=== PATIENT | male | born 1955 | race Caucasian/White ===

== ENCOUNTER 2021-06-22 11:13 | Inpatient (IN) | payer MEDICARE, BC ==
[~2021-06-22] VITALS: Ht 162.6 cm; Wt 83.8 kg
[~2021-06-22 11:13] MED LIST: ASPIRIN 81M81 MG/TA2 PO; CLARITIN 1010 MG/TAB PO; FEOSOL45 MG PO; MOTRIN 400400 MG/TAB PO; PROTONIX 40MG T40 MG PO
[2021-07-09] VITALS (11 sets, daily range): BP systolic 128–146; BP diastolic 46–93; PULSE 76–102; TEMP 98.1–99.8
[2021-07-09] MEDS ORDERED: PROTONIX20 MG PO (05:41)
[2021-07-09] MEDS ORDERED: FERROUS SU325 MG/TAB PO (05:42)
[2021-07-09] MEDS ORDERED: LIPITOR 40MG TA40 MG PO (05:42)
[2021-07-09] MEDS ORDERED: HCTZ12.5TAB PO (05:43)
--- NOTE | 2021-07-09 05:45 | NUR ---
PATIENT AND AMBULATED INTO [facility] WITH STEADY GAIT. PATIENT IS ALERT AND ORIENTED X 4. CONSENT EXPLAINED AND PATIENT SIGNED. ASSESSMENT COMPLETED. SEE CHART. HISTORY COMPLETED.
[2021-07-09 06:25] LABS: HEMATOCRIT 42.3 % (42.0-52.0); HEMOGLOBIN 14.3 g/dl (13.5-18.0); MEAN CELL VOLUME 93 fl (80.0-100.0); MEAN CORPUSCULAR HEMOGLOBIN 31 pg (27-31); MEAN CORPUSCULAR HGB CONC 34 g/dl (33.0-37.0); MEAN PLATELET VOLUME 11.1 fl (7.4-10.4); PLATELET COUNT 230 K/mm3 (130-400); RED BLOOD COUNT 4.57 M/mm3 (4.20-5.60); REDCELL DISTRIBUTION WIDTH-CV 12.5 % (11.5-14.5)
[2021-07-09 06:46] LABS: ALBUMIN 4.1 gm/dL (3.4-4.8); BILIRUBIN,TOTAL 0.6 mg/dL (0.2-1.2); CALCIUM 9.1 mg/dL (8.4-10.2); CREATININE, serum 0.99 mg/dL (0.72-1.25); POTASSIUM 3.8 mmol/L (3.5-4.5)
--- NOTE | 2021-07-09 11:35 | NUR ---
returned to room from PACU per bed, awake and alert, IV infusing and placed on pump at 75ml/hr, O2 on at 3L/NC, newton cath patent draining clear yellow urine in tubing, abdomen with 5 robotic puncture sites that have scant amt drainage to one mid abdomen, also has drain site covered with gauze, drain compressed, full assessment completed, see interventions for further info, denies needs at this time
--- NOTE | 2021-07-09 11:45 | NUR ---
provided water and takes sips and tolerates well, informed him he is not to use a straw or have carbonated beverages and verbalizes understanding,
--- NOTE | 2021-07-09 12:00 | NUR ---
urine is now a pink color in tubing, he rests between checks, at bedside
--- NOTE | 2021-07-09 12:21 | NUR ---
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
--- NOTE | 2021-07-09 12:45 | NUR ---
dozing between checks, c/o mild abdominal pain, medicated with scheduled tylenol, urine remains pink to fruit punch color
--- NOTE | 2021-07-09 13:27 | NUR ---
Dr Blanchard notified that urine is fruit punch in color and has had out approx 100ml u rine, order received
--- NOTE | 2021-07-09 13:35 | NUR ---
1000ml bolus NS started
[2021-07-09 13:40] LABS: BASO # 0.1 K/mm3 (0.0-0.2); EOS # 0.2 K/mm3 (0.0-0.7); EOS % 4.1 % (0.0-4.0); GRAN # 2.6 K/mm3 (1.4-6.5); GRAN % 51.1 % (42.2-75.2); LYMPH # 1.4 K/mm3 (1.2-3.4); LYMPH % 28.4 % (20.0-51.0); MONO # 0.8 K/mm3 (0.1-0.6); MONO % 14.8 % (1.7-9.3)
--- NOTE | 2021-07-09 14:15 | NUR ---
had jello and water and tolerates well, is now ordering clear liquid tray, will advance to regular diet after having clear liquids, urine is less fruit punch color and starting to clear
--- NOTE | 2021-07-09 15:20 | NUR ---
had clear liquids and tolerated well, bolus completed,
--- NOTE | 2021-07-09 16:27 | NUR ---
urine is clearning in tubing with dark colored sediment
--- NOTE | 2021-07-09 17:19 | NUR ---
watching football and visiting with , has ordered general diet, urine continues to clear in tubing
[2021-07-10 00:04] VITALS: BP 148/87; PULSE 90; TEMP 98
[2021-07-10 03:35] VITALS: BP 132/86; PULSE 90; TEMP 98.3
--- NOTE | 2021-07-10 04:11 | NUR ---
PATIENT A&O. SOME PAIN EARLIER AND PRN CURLY AND SCHEDULED TYLENOL WAS GIVEN, SEE EMAR. X5 LAP SITES CDI. PAULA DRAIN HAD 30 ML OF BLOODY OUTPUT. IV TO L HAND PATENT WITH LR RUNNING AT 75 ML/HR. CASTRO OUTPUT IS CLEAR YELLOW. WAS WEANED OFF OF HIS O2 DURING THE NIGHT.
[2021-07-10 05:27] LABS: BASO % 0.2 % (0.0-2.0); GRAN # 6.8 K/mm3 (1.4-6.5); GRAN % 74.7 % (42.2-75.2); LYMPH % 10.6 % (20.0-51.0); MEAN CELL VOLUME 96 fl (80.0-100.0); MEAN CORPUSCULAR HGB CONC 33 g/dl (33.0-37.0); MEAN PLATELET VOLUME 11.2 fl (7.4-10.4); MONO # 1.3 K/mm3 (0.1-0.6); MONO % 14.1 % (1.7-9.3); PLATELET COUNT 204 K/mm3 (130-400); RED BLOOD COUNT 3.75 M/mm3 (4.20-5.60); REDCELL DISTRIBUTION WIDTH-CV 12.6 % (11.5-14.5)
[2021-07-10 05:33] LABS: CALCIUM 8.5 mg/dL (8.4-10.2); CREATININE, serum 1.36 mg/dL (0.72-1.25); POTASSIUM 4.1 mmol/L (3.5-4.5)
[2021-07-10 05:36] LABS: HEMATOCRIT 35.9 % (42.0-52.0); HEMOGLOBIN 11.8 g/dl (13.5-18.0); MEAN CORPUSCULAR HEMOGLOBIN 31 pg (27-31)
[2021-07-10 07:17] VITALS: BP 146/83; PULSE 88; TEMP 98.2
--- NOTE | 2021-07-10 10:14 | NUR ---
PT ASSESSED. NO COMPLAINTS OF DYPSNEA. COMPLAINS OF PAIN AND IS MEDICATED PER MAR. CALL LIGHT WITHIN REACH.
[2021-07-10 11:18] VITALS: BP 124/76; PULSE 82; TEMP 98.1
[2021-07-10 12:12] LABS: HEMOGLOBIN 12.4 g/dl (13.5-18.0); MEAN CELL VOLUME 94 fl (80.0-100.0); MEAN CORPUSCULAR HEMOGLOBIN 32 pg (27-31); MEAN CORPUSCULAR HGB CONC 34 g/dl (33.0-37.0); MEAN PLATELET VOLUME 10.7 fl (7.4-10.4); PLATELET COUNT 207 K/mm3 (130-400); RED BLOOD COUNT 3.93 M/mm3 (4.20-5.60); REDCELL DISTRIBUTION WIDTH-CV 12.7 % (11.5-14.5)
[2021-07-10 16:00] VITALS: BP 136/77; PULSE 85; TEMP 98.4
[2021-07-10] MEDS ORDERED: COLACE 100100 MG/CAP PO (16:46)
[2021-07-10] MEDS ORDERED: NORCO 325 MG-51 TAB PO (16:47)
--- NOTE | 2021-07-10 17:13 | NUR ---
PT DISCHARGE TEACHING COMPLETE. ALL QUESTIONS ANSWERED. INFORMATION GIVEN ABOUT FOLLOW UP APPOINTMENTS AND MEDICATIONS. IV REMOVED. PT ESCORTED OUT.
== END 2021-07-10 17:18 | disposition home or self-care (01) | DRG 661 ==
LOC: INPTSU 07-09 05:20 → SURG 07-09 07:30
PROVIDERS: Nurse Anesthetist, Certified Registered; ADMIT Urology
PROC: 8E0W4CZ Robotic Assisted Procedure of Trunk Region, Percutaneous Endoscopic Approach (ICD-10-PCS; 2021-07-09)
PROC: 0TB14ZZ Excision of Left Kidney, Percutaneous Endoscopic Approach (ICD-10-PCS; principal; 2021-07-09 07:30)
DX: N28.89 Other specified disorders of kidney and ureter (principal); Z23 Encounter for immunization
CPT/HCPCS: A4314; A9284; J0690; J1100; J1885; J2250; J2405; J2704; J2795; J3010; J7030; J7120

== ENCOUNTER → 2023-08-01 | Outpatient (CLI) | payer MEDICARE, BC ==
[~2023-08-01] MED LIST changes: +COLACE 100100 MG/CAP PO; +FERROUS SU325 MG/TAB PO; +HCTZ12.5TAB PO; +LIPITOR 40MG TA40 MG PO; +NORCO 325 MG-51 TAB PO; +PROTONIX20 MG PO
== END ==
LOC: COL.RAD 10:27
DX: R93.422 Abnormal radiologic findings on diagnostic imaging of left kidney (principal)

== ENCOUNTER → 2023-11-08 | Outpatient (CLI) | payer MEDICARE, BC ==
[~2023-11-08] MED LIST changes: +Iohexol 300 - 10 ML VIAL IV ONE; +Triamcinolone 40 MG/ML 1 ML VIAL IJ ONE
== END ==
LOC: COL.RAD 09:56
DX: M25.552 Pain in left hip (principal)
CPT/HCPCS: J0665; J3301; Q9967